=== PATIENT | male | born 1990 | race Caucasian/White ===

== ENCOUNTER 2018-07-29 21:07 | Emergency (ER) | payer OTHER ==
[~2018-07-29] VITALS: Ht 172.7 cm; Wt 53.8 kg
[~2018-07-29 21:07] MED LIST: ALPR0.5T PO
[2018-07-29 21:32] VITALS: Ht 172.7 cm; Wt 53.8 kg
[2018-07-29 23:05] VITALS: BP 136/72; PULSE 54
--- NOTE | 2018-07-30 01:15 | ERD ---
ER Documentation Chief Complaint Chief Complaint gen weakness, feeling faint around 8 pm while eating HPI History of Present Illness: 27-year-old male who denies a past medical history coming in today with an episode that lasted approximately 10 minutes of generalized weakness, feeling faint, hands feeling cold, feeling anxious,. Patient reports this happened at approximately 8 PM. Patient reports he has been under stress due to increased work schedule. Patient reports a cardiac surgery history as a child. Patient reports increased caffeine intake of coffee recently. Mother is present during history and physical. Patient reports similar symptoms occurred when he took PHENERELINE medication for cold he had a few weeks ago. Patient denies any symptoms at this time. Patient reports feeling normal. At home pharmacological/nonpharmacological treatment for symptoms: Denies Denies social concerns; Denies recent foreign travel ROS All systems reviewed and are negative except as per history of present illness. Medications Home Meds Active Scripts Alprazolam* (Xanax*) 0.5 Mg Tab, 0.5 MG PO Q8H PRN for ANXIETY, #15 TAB Prov:ANTHONY DAY PA-C 04/03/15 Allergies Allergies: Coded Allergies: No Known Drug Allergies (Verified Allergy, Unknown, 07/29/18) PMhx/Soc Anesthesia Reaction: No Hx Neurological Disorder: No Hx Respiratory Disorders: No Hx Cardiac Disorders: Yes (HEART SURGERY WHEN BORN) Hx Psychiatric Problems: No Hx Miscellaneous Medical Probl: No Hx Alcohol Use: No Hx Substance Use: No Hx Tobacco Use: No Smoking Status: Never smoker FmHx Family History: coronary disease Physical Exam Vitals Vital Signs Date Temp Pulse Resp B/P (MAP) Pulse Ox O2 O2 Flow FiO2 Time Delivery Rate 07/29/18 54 136/72 100 Room Air 23:05 (93) 07/29/18 54 141/75 100 Room Air 23:04 (97) 07/29/18 61 137/66 100 Room Air 23:03 (89) 07/29/18 98.3 56 18 129/59 100 21:32 (82) Physical Exam Const: No acute distress Head: Atraumatic Eyes: Normal Conjunctiva ENT: Normal External Ears, Nose and Mouth. Neck: Full range of motion. No meningismus. Resp: Clear to auscultation bilaterally Cardio: Bradycardia, heart rate 57, regular rhythm, no murmurs Abd: Soft, non tender, non distended. Normal bowel sounds Skin: No petechiae or rashes Back: No midline or flank tenderness Ext: No cyanosis, or edema Neur: Awake and alert Psych: Normal Mood and Affect Procedures/MDM ED course includes a thorough examination and history. ED course includes assessment of orthostatic vital signs. Medications: -- Imaging: EKG Labs: -- Low suspicion for life-threatening medical emergency. Low suspicion for cardiopulmonary emergency that requires hospitalization or immediate surgical intervention. EKG @2255: Rate/Rhythm: Right bundle branch block, ventricular rate 53 QRS, ST, T-waves: No changes consistent w/ acute ischemia Impression: No evidence of ischemia or arrhythmia EKG reviewed by ED Dr. Yang. EKG from 03/2015 also showed a right bundle branch block. Patient denies any type of chest pain or syncopal episodes. Otherwise healthy patient presenting with constellation of symptoms likely representing near syncope, right bundle branch blockas characterized by history, physical exam findings . Patient reassessment: No respiratory distress, otherwise relatively well appearing and nontoxic. Patient and mother verbalizes understanding of instructions to call primary care doctor for a evaluation as well as for a referral to a pull over for further work-up and reassessment. Patient verbalized understanding of instructions to return to ER if he develops any type of chest pain or syncopal episodes. Patient educated on diagnoses, prescriptions, follow-up care, return precautions. Strict return precautions given for worsening condition; questions answered discharge. Disposition for discharge with followup in 2 days with PCP/clinic; patient should follow-up with cardiology. Departure Diagnosis: Primary Impression: Right bundle branch block (RBBB) determined by electrocardiogr... Additional Impression: Near syncope Condition: Stable Patient Instructions: Bradycardia, Weakness, Unk Cause Referrals: [facility] YOU HAVE RECEIVED A MEDICAL SCREENING EXAM AND THE RESULTS INDICATE THAT YOU DO NOT HAVE A CONDITION THAT REQUIRES URGENT TREATMENT IN THE EMERGENCY DEPARTMENT. FURTHER EVALUATION AND TREATMENT OF YOUR CONDITION CAN WAIT UNTIL YOU ARE SEEN IN YOUR DOCTORS OFFICE WITHIN THE NEXT 1-2 DAYS. IT IS YOUR RESPONSIBILITY TO MAKE AN APPOINTMENT FOR FOLOW-UP CARE. IF YOU HAVE A PRIMARY DOCTOR --you should call your primary doctor and schedule an appointment IF YOU DO NOT HAVE A PRIMARY DOCTOR YOU CAN CALL OUR PHYSICIAN REFERRAL HOTLINE AT IF YOU CAN NOT AFFORD TO SEE A PHYSICIAN YOU CAN CHOSE FROM THE FOLLOWING [facility] [address] [facility] [address] [facility] [address] [facility] [address] [facility] [address] [facility]. [facility]. [address] [facility]. [facility] YOU HAVE RECEIVED A MEDICAL SCREENING EXAM AND THE RESULTS INDICATE THAT YOU DO NOT HAVE A CONDITION THAT REQUIRES URGENT TREATMENT IN THE EMERGENCY DEPARTMENT. FURTHER EVALUATION AND TREATMENT OF YOUR CONDITION CAN WAIT UNTIL YOU ARE SEEN IN YOUR DOCTORS OFFICE WITHIN THE NEXT 1-2 DAYS. IT IS YOUR RESPONSIBILITY TO MAKE AN APPOINTMENT FOR FOLOW-UP CARE. IF YOU HAVE A PRIMARY DOCTOR --you should call your primary doctor and schedule and appointment IF YOU DO NOT HAVE A PRIMARY DOCTOR YOU CAN CALL OUR PHYSICIAN REFERRAL HOTLINE AT . IF YOU CAN NOT AFFORD TO SEE A PHYSICIAN YOU CAN CHOSE FROM THE FOLLOWING [facility] INSTITUTIONS: [facility] [address] [place] [address] [facility] [address] [place] [address] [facility] [address] [place] [address] Additional Instructions: Thank you very much for allowing us to participate in your care. Your health and safety is our top priority at [facility]. It is important to read all discharge instructions and education provided in your discharge packet. *Stop caffeine or any other stimulants. Call tuesday for cardiology appointment.* Call your primary care doctor TOMORROW for an appointment during the next 2 days and bring all the information and medications prescribed. Have prescriptions filled and follow precisely the directions on the label. If the symptoms get worse and your provider is unavailable, return to the Emergency Department immediately. If you develop chest pain, return to eR. GREG VILLANUEVA NP July 30, 2018 01:15
== END 2018-07-29 23:36 | disposition home or self-care (01) ==
LOC: FTE 21:07
DX: I45.10 Unspecified right bundle-branch block (principal)
CPT/HCPCS: 93005; Z7502